=== PATIENT | female | born 1980 | race Caucasian/White ===

== ENCOUNTER 2020-08-26 09:54 | Outpatient (REF) | payer MEDICAID, SELFPAY ==
[2020-08-26 11:06] LABS: MANUAL DIFF FLAG NO
[2020-08-26 11:14] LABS: Basophils Absolute Auto 0.1 X10*3/uL (0.0-0.2); Basophils Percent Auto 0.5 % (0-2); Eosinophils Absolute Auto 0.3 X10*3/uL (0.0-0.4); Eosinophils Percent Auto 1.9 % (0-4); Hematocrit 39.6 % (37-47); Hemoglobin 12.8 g/dl (12.0-16.0); Imm Gran Abs Auto 0.06 X10*3/uL (0.00-0.03); Imm Gran Pct Auto 0.4 % (0.0-0.4); Lymphocytes Absolute Auto 2.9 X10*3/uL (1.2-4.9); Lymphocytes Percent Auto 19.4 % (20-40); Mean Corpuscular HGB Conc 32.3 g/dl (31.0-35.0); Mean Corpuscular Hemoglobin 30.3 pg (27.0-33.0); Mean Corpuscular Volume 93.8 fL (80-98); Mean Platelet Volume 10.9 fL (9.4-12.3); Monocytes Absolute Auto 1.1 X10*3/uL (0.1-1.2); Monocytes Percent Auto 7.4 % (2-11); Neutrophils Absolute Auto 10.5 X10*3/uL (2.0-8.3); Neutrophils Percent Auto 70.4 % (45-73); Platelet Count 271 X10*3/uL (160-400); Red Blood Count 4.22 X10*6/uL (4.20-5.50); Red Cell Distribution Width 13.7 % (11.0-16.0)
[2020-08-26 11:41] LABS: Alanine Aminotransferase 19 U/L (0-31); Albumin Level 4.3 g/dL (3.5-5.0); Alkaline Phosphatase 56 U/L (39-117); Anion Gap 12 (12-20); Aspartate Amino Transferase 15 U/L (5-31); Bilirubin Total 0.4 mg/dL (0.0-1.0); Blood Urea Nitrogen 11 mg/dL (9-16); Calcium 8.9 mg/dL (8.4-10.2); Carbon Dioxide 27 mmol/L (22-29); Chloride 104 mmol/L (96-108); Estimated Glomerular Filt Rate > 60; Glucose Random 99 mg/dL (60-115); Iron 54 mcg/dL (30-160); Percent Iron Saturation 18 % (15-50); Potassium 4.8 mmol/l (3.3-5.1); Sodium 138 mmol/L (135-145); Total Iron Binding Capacity 304 mcg/dL (228-428); Total Protein 6.6 g/dL (6.5-8.0); Unsaturated Iron Binding 250 ug/dL
[2020-08-26 12:07] LABS: Ferritin 92 ng/mL (10-250); Free T4 (Free Thyroxine) 1.11 ng/dL (0.71-1.85); Thyroid Stimulating Hormone 5.81 uIU/mL (0.32-4.0); Vitamin D 25-OH Total 11.7 ng/mL (>30)
[2020-08-26 12:14] LABS: Folate 7.5 ng/mL (> or = 4.0); Vitamin B12 262 pg/mL (200-900)
== END 2020-08-26 09:55 | disposition home or self-care (01) ==
LOC: HO.MANLDS 09:54
PROVIDERS: PCP Internal Medicine; Visit Provider Physician Assistant
DX: L65.9 Nonscarring hair loss, unspecified (principal); N92.0 Excessive and frequent menstruation with regular cycle; M10.9 Gout, unspecified
CPT/HCPCS: 36415; 80053; 82306; 82607; 82728; 82746; 83540; 84439; 84443; 84550; 85025

== ENCOUNTER 2020-10-14 09:25 | Outpatient (REF) | payer MEDICAID, SELFPAY ==
[2020-10-14 11:38] LABS: Cholesterol 155 mg/dL; HDL Cholesterol 48 mg/dL; LDL Cholesterol Calculated 79 mg/dl; Triglycerides 143 mg/dL
[2020-10-14 12:00] LABS: Free T4 (Free Thyroxine) 1.07 ng/dL (0.71-1.85); Thyroid Stimulating Hormone 4.45 uIU/mL (0.32-4.0)
[2020-10-15 06:37] LABS: Follicle Stimulating Hormone 4.9 mIU/mL
== END 2020-10-14 09:26 | disposition home or self-care (01) ==
LOC: HO.MANLDS 09:25
PROVIDERS: PCP Internal Medicine; Visit Provider Physician Assistant
DX: Z00.00 Encounter for general adult medical examination without abnormal findings (principal); Z13.6 Encounter for screening for cardiovascular disorders
CPT/HCPCS: 36415; 80061; 83001; 84439; 84443

== ENCOUNTER 2021-07-04 09:23 | Outpatient (REF) | payer MEDICAID, SELFPAY ==
[2021-07-04 11:45] LABS: Free T4 (Free Thyroxine) 1.27 ng/dL (0.71-1.85); Thyroid Stimulating Hormone 5.57 uIU/mL (0.32-4.0)
== END 2021-07-04 09:24 | disposition home or self-care (01) ==
LOC: HO.MANLDS 09:23
PROVIDERS: PCP Physician Assistant; Visit Provider Physician Assistant
DX: E03.9 Hypothyroidism, unspecified (principal)
CPT/HCPCS: 36415; 84439; 84443

== ENCOUNTER 2022-02-21 11:49 | Outpatient (REF) | payer MEDICAID, SELFPAY ==
[2022-02-21 13:37] LABS: Free T4 (Free Thyroxine) 1.39 ng/dL (0.71-1.85); Thyroid Stimulating Hormone 2.79 uIU/mL (0.32-4.0)
== END 2022-02-21 11:50 | disposition home or self-care (01) ==
LOC: HO.MANLDS 11:49
PROVIDERS: Visit Provider Physician Assistant
DX: E07.9 Disorder of thyroid, unspecified (principal)
CPT/HCPCS: 36415; 84439; 84443

== ENCOUNTER 2024-12-04 13:45 | Outpatient (REF) | payer MEDICAID, SELFPAY ==
--- OUTSIDE RECORDS SUMMARY | 2024-12-04 14:02 | XMS_ITS | Data Portability ---
Author Organization [facility] Address [address] [place] [address] Assessment Encounter Date Assessment Date Assessment LastModified by Organization Details LastModified Time 08/19/2020 08/19/2020 [id number] [place] [id number] (DIE TRIMMER) MDM MODERATE MUST MEET 2 OUT OF 3 ELEMENTS: PROBLEMS, DATA OR RISK ELEMENT 1: PROBLEMS ADDRESSED 1 OR MORE CHRONIC ILLNESS WITH EXACERBATION OR OR OR 1 ACUTE ILLNESS W/SYMPTOMS OR ELEMENT 2: DATA MUST MEET 1 OF 3 CATEGORIES CATEGORY 1: REVIEW OF PRIOR EXTERNAL NOTES, REVIEW OF RESULTS, ORDERING OF EACH TEST, ASSESSMENT REQUIRING INDEPENDENT HISTORIAN OR CATEGORY 2: OR CATEGORY 3: ELEMENT 3: RISK RISK OF COMPLICATIONS AND/OR MORBIDITY OR MORTALITY OF PATIENT MANAGEMENT PROVIDER MUST THOROUGHLY DOCUMENT EACH ELEMENT THAT IS COVERED [email or web address] Not available 08/19/2020 09:47:17 03/26/2022 03/26/2022 [id number] [place] [id number] (DIE TRIMMER) : MDM LOW MUST MEET 2 OF 3 ELEMENTS: PROBLEMS, DATA OR RISK ELEMENT 1: PROBLEMS ADDRESSED (LOW): 2 OR MORE SELF-LIMITED OR MINOR PROBLEMS OR 1 STABLE CHRONIC ILLNESS OR 1 ACUTE UNCOMPLICATED ILLNESS OR INJURY ELEMENT 2: DATA TO BE REVISED AND ANALYZED (LOW) MUST MEET 1 OF 2 CATEGORIES: CATEGORY 1. REVIEW OF PRIOR EXTERNAL NOTES/RESULTS, ORDERING OF TEST(S) CATEGORY 2. ASSESSMENT REQUIRING INDEPENDENT HISTORIAN(S) INCLUDE WHO THE HISTORIAN IS AND RELATION TO PT AND WHY PT IS UNABLE TO GIVE COMPLETE HISTORY ELEMENT 3: RISK (LOW) RISK OF COMPLICATIONS AND/OR MORBIDITY OR MORTALITY OF PATIENT MANAGEMENT PROVIDER MUST THOROUGHLY DOCUMENT ALL OF THE ELEMENTS COVERED [email or web address] Not available 03/26/2022 11:12:19 Plan of Treatment Reminders Order Date Submit Date Provider Last Modified By Organization Details Last Modified Time Details Appointments None recorded. Lab TSH + free T4, serum 2024 025 [facility], [address] [place] [address], [id number], 5 11:37:05 FSH (follicle- stimulatin g hormone), serum 2020 [facility], [address] [place] [address], [address], 12:30:27 lipid panel, blood 2020 [facility], [address] [place] [address], [address], 12:30:27 TSH + free T4, serum 2020 [facility], [address] [place] [address], [address], 12:30:27 TSH + free T4, serum 2020 [facility], [address] [place] [address], [address], 11:44:31 vitamin D, 25-hydroxy , total, serum 2020 [facility], [address] [place] [address], [address], 11:44:30 vitamin B12 + folate, serum or blood 2020 [facility], [address] [place] [address], [address], 11:44:31 CBC w/ auto diff 2020 [facility], [address] [place] [address], [address], 11:44:31 CMP, serum or plasma 2020 021 [facility], [address] [facility], [place], [address], 11:44:30 iron + TIBC + ferritin, serum 2020 021 [facility], [address] [facility], [place], [address], 11:44:30 Referral None recorded. Procedures None recorded. Surgeries None recorded. Imaging XR, knee, 1 or 2 view 2021 022 [email or web address] 10 [facility] (Imaging), [address] [place] [address], [address], 2 10:21:24 Medication Orders amoxicilli n 875 mg tablet 2024 025 [facility][id number], [address] [place], [address], 5 11:35:12 tizanidine 4 mg tablet 2024 025 [facility] #[id number], [address] [place], [address], 5 11:35:13 Patient TargetsNo targets recorded. Patient InstructionsNo instructions recorded. Reason for Referral None Reported. Results Created Date Observation Date Name Description Value Unit Range Abnormal Flag Note LastModifiedBy Organization Detail LastModifiedTime Result Notes None recorded. Problems Name Problem SNOMED Code Status Onset Date Resolution Date Notes Provider Name and Address Organization Details Recorded Time Depressive disorder 40978652 Active 2017 Lindsey osorio [facility] 8 08:30:53 Disorder of thyroid gland 67875439 Active 2017 Lindsey osorio [facility] 8 08:31:07 Bipolar disorder 95212288 Active 2017 Lindsey osorio [facility] 8 08:31:16 Migraine 65089139 [facility] Deliveries by 704174098 Active 2017/2 005 [facility] 08:31:41 Gout 27066903 [facility] 2017 [facility] 08[facility]31:48 History of obesity 191948821 Active 2017 [facility] 08:31:56 Impaired fasting glycemia 748895219 Active 2017 [facility] 08:32:04 Osteoarthr itis 255545734 Active 2017 [facility] 08:32:10 Chronic gouty arthritis 02167388 Active 2021 Andrew Bartholomew DO [address] [place] [address], [address], [facility] 2 11:10:53 Acute left otitis media 784784330 Active 2024 OLIVIA MORROW [address] [place] [address], [address], [facility] 5 11:33:18 Temporoman dibular joint disorder 83762471 Active 2024 OLIVIA MORROW [address] [place] [address], [address], [facility] 5 11:34:37 Acquired hypothyroi dism 127864342 Active 2024 OLIVIA MORROW [address] [place] [address], [address], [facility] 5 11:35:45 Acute right otitis media 921490903 Active 2024 OLIVIA MORROW [address] [place] [address], [address], [facility] 5 14:51:52 Problem Notes None recorded. Procedures Surgical History Date Name Laterality Status Provider Name and Address Organization Details Recorded Time 022 Corticosteroid Injection completed Andrew Bartholomew [address] [place] [address], [phone], [facility] 03/26/2022 11:06:00 020 Corticosteroid Injection completed Andrew Bartholomew [address] [place] [address], [address], [facility] Internal [facility] 03/11/2020 12:46:42 018 Corticosteroid Injection completed Andrew Bartholomew [address] [place] [address], [phone], [facility] 05/05/2018 15:10:07 Imaging Results None recorded. Procedure Notes None recorded. Medical Equipment None Reported. Allergies Allergen ID Allergen Name Allergen Category Reaction Reaction Severity Criticality Documentation Date Start Date Code Code System Note Provider Name and Address Organization Details Recorded Time 2189 codeine medicatio n Not available Not available Not available 04/01/2018 2670 RxNorm [facility] 08:30:44 Medications Name Sig Start Date Stop Date Status Note LastModified by Organization Details LastModified Time quetiapine 25 mg tablet TAKE 1 TABLET BY MOUTH EVERY DAY AT BEDTIME NEEDED active Not Available Not Available No t Available fluoxetine 40 mg capsule TAKE 1 CAPSULE BY MOUTH EVERY DAY IN THE MORNING active Not Available Not Available No t Available trazodone 50 mg tablet TAKE 1 TABLET BY MOUTH EVERYDAY AT BEDTIME active Not Available Not Available No t Available nicotine (polacrilex ) 2 mg gum PLEASE SEE ATTACHED FOR DETAILED DIRECTION S 07/04 completed Not Available Not Available Not Available tizanidine 4 mg tablet Take 1 tablet twice a day by oral route as needed for 30 days. 2024 active Not Available Not Available Not Avai lable prazosin 1 mg capsule TAKE 1 CAPSULE BY MOUTH EVERYDAY AT BEDTIME active Not Available Not Available No t Available Medrol (Vadim) 4 mg tablets in a dose pack Take 1 dose pk by oral route. 2024 active Not Available Not Available Not Avai lable hydroxyzine pamoate 50 mg capsule TAKE 1 CAPSULE BY MOUTH TWICE A DAY NEEDED FOR SLEEP OR ANXIETY 07/04 completed Not Available Not Available Not Available hydroxyzine HCl 50 mg tablet Take 1 tablet every 6 hours by oral route as needed. 07/04 completed Not Available Not Available Not Available allopurinol 100 mg tablet take 1 tablets by mouth once daily 10/12 completed Not Available Not Available Not Available levothyroxi ne 100 mcg tablet TAKE 1 TABLET BY MOUTH EVERY DAY 07/05 completed Not Available Not Available Not Available levothyroxi ne 88 mcg tablet TAKE 1 TABLET BY MOUTH EVERY DAY 07/04 completed Not Available Not Available Not Available propranolol 10 mg tablet TAKE 1 TABLET BY MOUTH TWICE A DAY NEEDED FOR ANXIETY 07/04 completed Not Available Not Available Not Available amoxicillin 875 mg tablet Take 1 tablet every 12 hours by oral route as directed for 10 days. 2024 active Not Available Not Available Not Avai lable lorazepam 0.5 mg tablet TAKE 1 TABLET BY MOUTH EVERY DAY NEEDED FOR PANIC active Not Available Not Available No t Available triamcinolo ne acetonide 0.025 % topical cream APPLY TOPICALLY TWICE A DAY active Not Available Not Available No t Available trazodone 100 mg tablet TAKE 1 TABLET BY MOUTH EVERY DAY AT BEDTIME NEEDED active Not Available Not Available No t Available docusate sodium 100 mg capsule TAKE 1 CAPSULE BY MOUTH TWICE A DAY NEEDED FOR CONSTIPAT ION 10/12 completed Not Available Not Available Not Available buspirone 7.5 mg tablet TAKE 1 TABLET BY MOUTH EVERY DAY IN THE MORNING active Not Available Not Available No t Available propranolol 20 mg tablet Take 1 tablet twice a day by oral route as needed. 10/12 completed Not Available Not Available Not Available fluoxetine 20 mg capsule TAKE 1 CAPSULE BY MOUTH EVERY DAY IN THE MORNING active Not Available Not Available No t Available prazosin 2 mg capsule TAKE 1 CAPSULE BY MOUTH EVERYDAY AT BEDTIME active Not Available Not Available No t Available levothyroxi ne 112 mcg tablet TAKE 1 TABLET BY MOUTH EVERY DAY active Not Available Not Available No t Available nicotine (polacrilex ) 2 mg buccal lozenge TAKE 1 LOZENGE BY MOUTH EVERY 2 HOURS FOR 6 WEEKS NEEDED FOR SMOKING CESSATION 10/12 completed Not Available Not Available Not Available cyclobenzap rine 5 mg tablet Take 1 tablet 3 times a day by oral route as needed for 14 days. 2024 active Not Available Not Available Not Avai lable Vitamin D active OTC Not Available Not Ashley ilable Not Available multivitami n active OTC Not Available Not Available Not Available quetiapine 50 mg tablet TAKE 1 TABLET BY MOUTH EVERY DAY AT BEDTIME FOR 30 DAYS 10/12 completed Not Available Not Available Not Available Afluria Qd (36 mos up)(PF)60 mcg (15 mcg x4)/0.5 mL IM syringe PHARMACY ADMINISTE [facility] 10/12 completed Not Available Not Available Not Available Vitals Date Recorded Body height Body mass index (BMI) Body weight Heart rate Oxygen saturation Oxygen saturation in Arterial blood by Pulse oximetry Systolic blood pressure Diastolic blood pressure Provider Name and Address Organization Details Last Updated DateTime 1 152.4 cm 19.1 kg/m2 71898.0 5 g 88 /min 97 % 97 % 120 mm[Hg] 60 mm[Hg] Yissel Herrera [facility] 1 15:27:53 Date Recorded Body height Body mass index (BMI) Body weight Oxygen saturation Oxygen saturation in Arterial blood by Pulse oximetry Heart rate Systolic blood pressure Diastolic blood pressure Provider Name and Address Organization Details Last Updated DateTime 1 152.4 cm 43.5 kg/m2 746844. 74 g 96 % 96 % 97 /min 122 mm[Hg] 70 mm[Hg] Yahaira Gutierrez [facility] 1 09:06:41 Date Recorded Body height Body mass index (BMI) Body weight Provider Name and Address Organization Details Last Updated DateTime 03/26/2022 152.4 cm 43.5 kg/m2 539110.74 g Sudha Buchanan [facility] 03/26/2022 10:46:25 Date Recorded Body height Body mass index (BMI) Body weight Heart rate Oxygen saturation Oxygen saturation in Arterial blood by Pulse oximetry Systolic blood pressure Diastolic blood pressure Provider Name and Address Organization Details Last Updated DateTime 5 152.4 cm 31.8 kg/m2 96369.5 6 g 97 /min 98 % 98 % 130 mm[Hg] 70 mm[Hg] OLIVIA MORROW [address] [place], [address], [facility] 5 11:27:31 Social History Question Answer Notes LastModified by Organizat ion Details LastModified Time Tobacco Smoking Status Current Every Day Smoker 15 cigerettes per day Yahaira osorio [facility] 07/04/2021 09:05:29 What Was The Date Of Your Most Recent Tobacco Screening? 11/27/2024 Information not available 11/27/2024 Do You Or Have You Ever Used Any Other Forms Of Tobacco Or Nicotine? No Information not available 11/27/2024 Sex: Unknown Functional Status None recorded. Mental Status None recorded. Family History Nothing Reported. Medical History No medical history recorded. Gynecological HistoryNo gynecological history recorded. Obstetrics History GPAL:G 0 P 0 0 0 0 Immunizations Vaccine Type Date Status Note Provider Nam e and Address Organization Details Recorded Time COVID-19, mRNA, LNP-S, PF, 100 mcg/0.5mL dose or 50 mcg/0.25mL dose 1 completed Yahaira osorio [facility] 06/02/2021 10:54:50 COVID-19, mRNA, LNP-S, PF, 100 mcg/0.5mL dose or 50 mcg/0.25mL dose 1 completed Yahaira osorio [facility] 06/02/2021 10:55:01 Influenza, split virus, quadrivalent, preservative 8 completed Sudha osorio [facility] 05/05/2018 14:45:43 Influenza, split virus, quadrivalent, preservative 0 completed Yissel osorio [facility] 10/12/2020 14:36:59 Past Encounters Encounter ID Performer Location Encounter Start Date Encounter Closed Date Diagnosis/Indication Diagnosis SNOMED-CT Code Diagnosis ICD10 Code Diagnosis Note [id number] Andrew Bartholomew DO [facility] [address] [facility] [address] 05/05/2018 14:39:03 05/05/2018 15:27:53 Osteoarthritis 755514247 M15.0 matt inj of knee well tolerated [id number] Andrew Bartholomew [facility] [address] [facility] [address] 03/11/2020 11:57:19 03/11/2020 12:54:01 Osteoarthritis 762335972 M15.0 matt inj of knee well tolerated but has worsened pain over the last few months seems much worse will need xr [id number] Andrew Bartholomew [facility] [address] [facility] [address] 05/03/2020 14:40:52 05/03/2020 16:09:18 Gout 20350371 M10.9 will check uric acid Bipolar disorder 7848760 4 F31.9 stable per patient seeing out patient Depressive disorder 3548 9007 F32.9 stable Disorder o f thyroid gland 26026492 E07.9 will check thyroid again Active or passive immunization 275656579 Z23 needs Tdap Tobacco de pendence syndrome 31320021 F17.200 would like to try gum patches gave her nightmares [id number] Andrew Bartholomew [facility] [address] [facility] [address] 08/19/2020 08:44:38 08/19/2020 10:06:45 Disorder of thyroid gland 80364944 E07.9 will re evaluate the patient's thyroid and see if medication issue or needs dose adjustment will also check a few other labs that can be contributo ry to her symptoms she is experienci ng pt agrees to this plan Fatigue 81075649 R53.83 possibly correlated or related to medication needs appropriat e testing to verify Loss of hair 140842917 L 65.9 always lossing hair before, but now patient reports it is excessive will fu after lab results come in Menorrhagia 286770530 N9 2.0 will test her blood levels to see how much the heavy menses is effecting her iron and RBC levels for more appropriat e treatment [id number] Andrew Bartholomew [facility] [address] [facility] [address] 10/12/2020 15:16:52 10/12/2020 15:52:19 Adult health examination 965601832 Z00.00 BP excellent Screening for cardiovascular system disease 172999332 Z13.6 will check labs and fu Menorrhagia 729671141 N9 2.0 due to heavy periods and concern for early menopause will test her FSH level (aunt went through menopause at 22 y/o and mother went through menopause at 53) [id number] Andrew Bartholomew [facility] [address] [facility] [place] [address] 07/04/2021 08:57:12 07/07/2021 15:27:01 Bipolar disorder 68876437 F31.32 stable per patient seeing outpatient psych Depressive disorder 3548 9007 F32.1 stable Disorder o f thyroid gland 39275840 E07.89 stable Osteoarthritis 867976463 M15.0 fu with MB for cortisone shot [id number] [facility] [address] [facility] [facility] [place] [address] 03/26/2022 10:40:04 03/26/2022 11:13:59 Chronic gouty arthritis 24776737 M1A.0610 matt inj Bipolar disorder 4983712 4 F31.32 currently stable [id number] Andrew Bartholomew [facility] [address] [facility], [place] [address] 11/27/2024 11:11:52 11/27/2024 11:54:30 Acute left otitis media 372533229 H66.92 will set up with amoxicilli n for patient to use Temporoman dibular joint disorder 67720055 M26.609 will set up with msk realxer for teeth grinding Acquired hypothyroidism 305360444 E03.9 set up with recheck Health Concerns Section Related Observation LastModified by Organization Detai ls LastModified Time None Recorded Concern Status LastModified by Organization Details LastModified Time None Recorded Advance Directives Directive None Recorded Payers Encounter Date Sequence Insurance Name Policy Number Policy Hobson Covered Member ID Hobson Member ID Guarantor Name 08/19/2020 1 [place] [facility] PRIOR TO 11/03/2022 - [employer] (MEDICAID) Nida Heredia [id number] Nida Volcano 10/12/2020 1 [place] PRIOR TO 2022 - [employer] (MEDICAID) Nida June Heredia [id number] Nida Heredia 03/26/2022 1 [place]IOR [place] 2022 - [employer] (MEDICAID) Nida June Heredia [id number] Nida Heredia 11/27/2024 1 [place] [employer] [facility] [id number] [facility] Notes Date Note Type Note Provider Name and Address Organization Details Recorded Time 1 text/htm l c/o hair loss and heavy menses the pt reports that she has been having an excessive amount of hair loss the patient reports that she is having heavy, heavy periods the patient reports that the her hair is also very brittle and dry the patient reports brittleness to her finger nails and easily peel the patient reports that she is fatigued as well, but does not know if this is due to possible underlying issue or just related to the medications she is taking she does endorse the fact that she used to be on levo with iodine and wondering it anything is related to lack of iodine discussed with her it usually causes a goiter, which patient denies reviewed old TSH from april, her levels were wnl, needs recheck the patient reports that she does not have any heat of cold intolerance, n/v/d, abdominal pain, neck mass, slowed HR, constipation or dry skin no fever, no chills, no sob, no cough, no abd pain, no chest pain, no n/v/d, no sore throat, no congestion, no body aches OLIVIA MORROW [address] [place] [address], [place], [address], [facility] 08/19/2020 09:48:02 1 text/htm l Annual WellnessReported bypatient.Diet and Nutrition:healthy diet; discussed vitamin and supplement use; discussed portion control; discussed maintaining calcium balance; discussed diet improvement Fracture Risk:no history of fractures; no recent explained fracture; no sudden unexplained fractures; no previous musculoskeletal injuries Physical Activity:does not exercise on a regular basis; discussed weightbearing activities Additional Lifestyle Factors:no alcohol intake;tobacco use(15 cigarettes per day) Depression Risk:never feels sad, empty, or tearful; no loss of interest in activities; no significant changes in weight; no sleep disturbances or insomnia; no agitation; no loss of energy; no feelings of worthlessness or guilt; no thoughts of suicide;history of mood disorders;history of depression Hearing:no loss of hearing; tinnitus bilaterally, worse at night Vision:no vision problems; glasses only needs repeat eye exam OLIVIA MORROW [address] [place], [address], [facility] 10/12/2020 15:44:39 1 text/htm l fu paperwork the patient is here for release of medical records for disability due to group home psychiatric hx including bipolar disorder and depression the patient sees a specialist for this and has been stable for the last few months the patient reports that she is taking her medication as prescribed last TSH check was normal, no medical intervention required does need a fu cortisone shot in her right kneeset up appt for OLIVIA BUSTILLOS [address] [place], [address], [facility] 07/04/2021 09:21:40 2 text/htm l here for matt injhas had pain in her right knee for the last 3 monthshas had gout in this joint in past no current gout attackbelieve this represents gouty arthritisunderstands procedure in same knee Andrew Bartholomew, [address] [place], [address], [facility] 03/26/2022 11:13:37 5 text/htm l c/o ear pain L ear pain left sided started a week ago, noticed draining, clear liquid some pressure no hearing changesR ear is fine has been grinding her teeth a lot at night as well which may be due to or a result of the ear infection recommended a dental consult and will start her on a msk relaxer to help alleviate the grinding would like her thyroid checked, has been awhilegiven lab slip to use at out lab when it opens again on Saturday OLIVIA MORROW [address] [place], [address], [place] [facility] 11/27/2024 11:40:04 OBGyn Episode No OBEpisode recorded.
[2024-12-04 18:37] LABS: Free T4 (Free Thyroxine) 0.77 ng/dL (0.71-1.85); Thyroid Stimulating Hormone 1.68 uIU/mL (0.32-4.0)
== END 2024-12-04 13:46 | disposition home or self-care (01) ==
LOC: HO.MANLDS 13:45
PROVIDERS: Visit Provider Physician Assistant
DX: E03.9 Hypothyroidism, unspecified (principal)
CPT/HCPCS: 36415; 84439; 84443